=== PATIENT | female | born 1960 | race American Indian/Alaskan Native ===

== ENCOUNTER 2018-02-18 08:18 | Day surgery (SDC) | payer BC ==
[2012-10-13 12:11] VITALS: BMI 30.7
[2018-02-18] MEDS ORDERED: Midazolam 2 MG/2 ML VIAL ONE (09:58)
[2018-02-18] MEDS ORDERED: Propofol 10 mg/ml Inj (20 ML) ONE ×2 (09:58→10:40)
[2018-02-18] MEDS ORDERED: Sodium Chloride 0.9% 1,000 ML IV SCH (11:15)
[2018-02-18 13:21] VITALS: BP 119/77; PULSE 70; RESP 15; TEMP 97.5; O2SAT 97
== END 2018-02-18 13:00 | disposition home or self-care (01) ==
LOC: ENDO 08:18
PROVIDERS: ATTEND Internal Medicine Gastroenterology
DX: K29.50 Unspecified chronic gastritis without bleeding (principal); K44.9 Diaphragmatic hernia without obstruction or gangrene; K21.0 Gastro-esophageal reflux disease with esophagitis; K57.30 Diverticulosis of large intestine without perforation or abscess without bleeding; K64.8 Other hemorrhoids; R19.7 Diarrhea, unspecified
CPT/HCPCS: 43239; 45380; 88305; 88312; 88342; J2001; J2250; J2704; J7030; J7040